=== PATIENT | female | born 1995 | race Caucasian/White ===

== ENCOUNTER 2022-04-04 01:25 | Emergency (ER) | payer SELFPAY ==
[~2022-04-04] VITALS: Ht 154.9 cm; Wt 54.4 kg
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
--- NOTE | 2022-04-04 02:08 | NUR ---
PT SIGNED WAIVER FORM. VERBALIZED UNDERSTANDING
[2022-04-04] MEDS ORDERED: IBUPROFEN 400 MG TABLET ONE (02:18)
--- NOTE | 2022-04-04 02:22 | NUR ---
PT TAKEN TO CT VIA MELANIE
[2022-04-04] MEDS ORDERED: IBUPROFEN 400 MG TABLET PO ONE (02:30)
--- NOTE | 2022-04-04 03:17 | NUR ---
Patient discharged to home in stable condition. Written and verbal after care instructions given. Patient verbalizes understanding of instruction. PT ambulatory with a steady gait
[2022-04-04 03:24] VITALS: BP 129/84
== END 2022-04-04 03:25 | disposition home or self-care (01) ==
LOC: ER 01:34
DX: M54.41 Lumbago with sciatica, right side (principal); Z88.0 Allergy status to penicillin; Z88.1 Allergy status to other antibiotic agents; V49.49XA Driver injured in collision with other motor vehicles in traffic accident, initial encounter; Y93.89 Activity, other specified; Y92.413 State road as the place of occurrence of the external cause; Y99.8 Other external cause status
CPT/HCPCS: 72131-TC

== ENCOUNTER 2023-03-29 13:21 | Emergency (ER) | payer OTHER ==
[~2023-03-29] VITALS: Ht 154.9 cm; Wt 54.4 kg
--- NOTE | 2023-03-29 13:35 | NUR ---
C/O SORETHROAT AND DIARRHEA X 5 DAYS
[2023-03-29] MEDS ORDERED: IV NS 0.9% 1,000 ML IV ONE (14:30)
[2023-03-29] MEDS ORDERED: DEXAMETHASONE SOD PHOSPHATE 10 MG/ML VIAL MC ONE (14:30)
[2023-03-29] MEDS ORDERED: KETOROLAC TROMETHAMINE INJ 30 MG/ML VIAL IV ONE (14:30)
[2023-03-29] MEDS ORDERED: KETOROLAC TROMETHAMINE INJ 30 MG/ML VIAL ONE (14:47)
--- NOTE | 2023-03-29 14:56 | NUR ---
STREP / COVID SWAB TAKEN SENT TO LAB
--- NOTE | 2023-03-29 14:56 | NUR ---
IV LINE 20 G LAC
--- NOTE | 2023-03-29 17:28 | NUR ---
IV removed. Catheter intact and site benign. Pressure and 4x4 applied to site. No bleeding noted.
--- NOTE | 2023-03-29 17:28 | NUR ---
Patient discharged to home in stable condition. Written and verbal after care instructions given. Patient verbalizes understanding of instruction.
[2023-03-29 17:29] VITALS: BP 122/61
== END 2023-03-29 17:30 | disposition home or self-care (01) ==
LOC: ER 13:30
DX: J02.8 Acute pharyngitis due to other specified organisms (principal); Z20.822 Contact with and (suspected) exposure to COVID-19; Z88.0 Allergy status to penicillin; Z88.1 Allergy status to other antibiotic agents
CPT/HCPCS: 99284; 96374; 71045; 96361; 96375; 87426; 87880; J1885; J7030; C9803; 86403-TC